=== PATIENT | female | born 1955 | race Caucasian/White ===

== ENCOUNTER 2022-06-08 18:43 | Emergency (ER) | payer OTHER, MEDICARE ==
[2022-06-08 18:51] VITALS: BP 136/88; PULSE 81
== END 2022-06-08 19:45 | disposition home or self-care (01) ==
LOC: VM.ED 18:43
DX: S01.01XA Laceration without foreign body of scalp, initial encounter (principal); E78.9 Disorder of lipoprotein metabolism, unspecified; Z79.899 Other long term (current) drug therapy; W10.8XXA Fall (on) (from) other stairs and steps, initial encounter
CPT/HCPCS: 12001; 99282; 99283

== ENCOUNTER 2023-06-27 15:38 | Emergency (ER) | payer OTHER, MEDICARE ==
[2023-06-27 16:06] VITALS: PULSE 102
[2023-06-27 16:16] LABS: BASOPHILS PERCENT AUTO 0.2 % (0.2-1.2); EOSINOPHILS ABSOLUTE AUTO 0.2 x10^3/uL (0.0-0.5); EOSINOPHILS PERCENT AUTO 1.4 % (0.0-4.0); HEMATOCRIT 38.8 % (33.0-47.0); IMMATURE GRAN ABSOLUTE AUTO 0.02 x10^3/uL (0.00-0.07); LYMPHOCYTES PERCENT AUTO 37.8 % (25.0-50.0); MEAN CORPUSCULAR HEMOGLOBIN 29.5 pg (26.0-32.0); MEAN CORPUSCULAR HGB CONC 33.5 g/dL (32.0-36.0); MEAN CORPUSCULAR VOLUME 88.2 fL (78.0-93.0); MONOCYTES ABSOLUTE AUTO 0.6 x10^3/uL (0.0-0.8); MONOCYTES PERCENT AUTO 4.2 % (2.0-11.0); NEUTROPHILS ABSOLUTE AUTO 7.7 x10^3/uL (1.8-7.7); NEUTROPHILS PERCENT AUTO 56.3 % (50.0-80.0); PLATELET COUNT,PLT 381 x10^3/uL (130-400); WHITE BLOOD CELL COUNT,WBC 13.7 x10^3/uL (4.0-10.0)
[2023-06-27 16:30] LABS: LYMPHOCYTES ABSOLUTE AUTO 5.2 x10^3/uL (1.0-4.8)
[2023-06-27 16:35] LABS: INR 0.9 (0.9-1.1); PTT,PARTIAL THROMBOPLSTIN TIME 24.4 SEC (23.6-33.6)
[2023-06-27 16:37] LABS: A/G RATIO 1.05; ALANINE AMINOTRANSFERASE,ALT 39 U/L (14-59); ALKALINE PHOSPHATASE 101 U/L (46-116); ASPARTATE AMNIOTRANSFERASE,AST 21 U/L (15-37); BILIRUBIN TOTAL 0.3 mg/dL (0.2-1.0); BLOOD UREA NITROGEN,BUN 23 mg/dL (7-18); CALCIUM 9.5 mg/dL (8.5-10.1); CARBON DIOXIDE,CO2 24 mmol/L (21-32); CHLORIDE,CL 103 mmol/L (98-107); CREATININE 0.9 mg/dL (0.55-1.02); GLUCOSE RANDOM 146 mg/dL (70-99); PROTEIN TOTAL,TP 7.8 g/dL (6.4-8.2); SODIUM,NA 141 mmol/L (136-145)
[2023-06-27 16:38] LABS: ESTIMATED GFR 71 mL/min (>=60)
[2023-06-27] MEDS: Oxymetazoline 0.05% Nasal Spray 30 ML Bottle NAS ONE (16:40)
[2023-06-27] MEDS: Take Home: Acetaminophen/Codeine 300 MG/30 MG, 5 Tab Pack PO ONE (16:46)
[2023-06-27 18:31] VITALS: BP 160/89
== END 2023-06-27 16:50 | disposition home or self-care (01) ==
LOC: VM.ED 15:38
DX: R04.0 Epistaxis (principal); Z79.899 Other long term (current) drug therapy
CPT/HCPCS: 30905; 36415; 80053; 85025; 85610; 85730; 99283; A9270-GY